=== PATIENT | male | born 1965 | race Caucasian/White ===

== ENCOUNTER 2023-03-31 16:26 | Emergency (ER) | payer OTHER ==
--- NOTE | 2023-03-31 16:28 | ERPHSYRPT ---
- History of Present Illness Time Seen by Provider: 03/31/23 16:28 Historian: patient Exam Limitations: no limitations Physician History: This is a 57-year-old white male patient who presents to the emergency department with 4-day history of intermittent right flank achiness and intermittent sharp shooting pains that has been occurring. He is never had this before. He has had no injury to his right flank area. He is concerned about a kidney stone but he is never had one before. He has no urinary symptoms. The most recent attack was 2 hours prior to arrival. He has no frequency, he has no hematuria, he has no dysuria. He denies nausea vomiting diarrhea. He denies chest pain. He denies shortness of breath. The pain can be elicited with palpation Timing/Duration: day(s) (4), intermittent, worse Quality: aching, sharpness, stabbing Abdominal Pain Onset Location: flank (Right lower back/flank) Pain Radiation: no radiation Severity of Pain-Max: moderate Severity of Pain-Current: moderate Modifying Factors: Improves With: movement, palpation Associated Symptoms: denies symptoms Previous symptoms: no prior history Allergies/Adverse Reactions: No Known Drug Allergies Allergy (Unverified 03/31/23 16:37) Travel Risk - International Travel Have you traveled outside of the country in past 3 weeks: No - Coronavirus Screening Are you exhibiting any of the following symptoms?: No Close contact with a COVID-19 positive Pt in past 14-21 Days: No - Review of Systems Constitutional: No Symptoms Eyes: No Symptoms Ears, Nose, & Throat: No Symptoms Respiratory: No Symptoms Cardiac: No Symptoms Abdominal/Gastrointestinal: No Symptoms Genitourinary Symptoms: Flank Pain (Right side) Musculoskeletal: Back Pain Skin: No Symptoms Neurological: No Symptoms Psychological: No Symptoms Endocrine: No Symptoms Hematologic/Lymphatic: No Symptoms Immunological/Allergic: No Symptoms All Other Systems: Reviewed and Negative - Past Medical History Pertinent Past Medical History: Yes - Past Surgical History Past Surgical History: Yes - Nursing Vital Signs Nursing Vital Signs: Initial Vital Signs Temperature 97.4 F 03/31/23 16:38 Pulse Rate 65 03/31/23 16:38 Respiratory Rate 18 03/31/23 16:38 Blood Pressure 164/69 03/31/23 16:38 O2 Sat by Pulse Oximetry 97 03/31/23 16:38 Pain Scale Pain Intensity 8 - Physical Exam General Appearance: mild distress, alert, anxiety Eye Exam: PERRL/EOMI, eyes nml inspection Ears, Nose, Throat Exam: normal ENT inspection, moist mucous membranes Neck Exam: normal inspection, non-tender, supple, full range of motion Respiratory Exam: normal breath sounds, lungs clear, airway intact, No chest tenderness, No respiratory distress Cardiovascular Exam: regular rate/rhythm, normal heart sounds, normal peripheral pulses Gastrointestinal/Abdomen Exam: soft, normal bowel sounds, No tenderness Rectal Exam: not done Back Exam: normal inspection, normal range of motion, CVA tenderness (Versus right lower back), No vertebral tenderness Extremity Exam: normal inspection, normal range of motion, pelvis stable Neurologic Exam: alert, oriented x 3, cooperative, 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, normal mood/affect, nml cerebellar function, nml station & gait, sensation nml Skin Exam: normal color, warm, dry Lymphatic Exam: No adenopathy SpO2 Interpretation: normal O2 Delivery: Room Air - Course Nursing assessment & vital signs reviewed: Yes Ordered Tests: Active Orders 24 hr Category Date Time Status IV Insertion STAT Care 03/31/23 16:47 Active ABDOMEN AND PELVIS W/0 CONTRAS [CT] Stat Exams 03/31/23 16:47 Completed AMYLASE Stat Lab 03/31/23 16:49 Completed CBC W DIFF Stat Lab 03/31/23 16:49 Completed CMP Stat Lab 03/31/23 16:49 Completed LIPASE Stat Lab 03/31/23 16:49 Completed UA W/RFX UR CULTURE Stat Lab 03/31/23 16:49 Completed Medication Summary Discontinued Medications Generic Name Dose Route Start Last Admin Trade Name Shannan PRN Reason Stop Dose Admin Hydromorphone HCl 1 mg 03/31/23 16:47 03/31/23 16:51 Hydromorphone 1 Mg/1ml Inj IV 03/31/23 16:48 1 mg STAT ONE Administration Hydromorphone HCl Confirm 03/31/23 16:50 Hydromorphone 1 Mg/1ml Inj Administered 03/31/23 16:51 Dose 1 mg .ROUTE .STK-MED ONE Ketorolac Tromethamine 30 mg 03/31/23 16:47 03/31/23 16:51 Ketorolac Tromethamine 30 Mg/Ml Inj IV 03/31/23 16:48 30 mg STAT ONE Administration Ketorolac Tromethamine Confirm 03/31/23 16:50 Ketorolac Tromethamine 30 Mg/Ml Inj Administered 03/31/23 16:51 Dose 30 mg .ROUTE .STK-MED ONE Ondansetron HCl 4 mg 03/31/23 16:47 03/31/23 16:51 Ondansetron Hcl 4 Mg/2 Ml Vial IV 03/31/23 16:48 4 mg STAT ONE Administration Ondansetron HCl Confirm 03/31/23 16:50 Ondansetron Hcl 4 Mg/2 Ml Vial Administered 03/31/23 16:51 Dose 4 mg .ROUTE .STK-MED ONE Lab/Rad Data: Laboratory Result Diagrams 03/31/23 16:49 03/31/23 16:49 Laboratory Results 03/31/23 03/31/23 03/31/23 Range/Units 16:49 16:49 16:49 WBC 7.9 (4.0-10.5) x10^3/uL RBC 5.30 (4.1-5.6) x10^6/uL Hgb 16.2 (12.5-18.0) g/dL Hct 48.1 (42-50) % MCV 90.8 (78-100) fL MCH 30.6 (26-32) pg MCHC 33.7 (32-36) g/dL RDW 12.4 (11.5-14.0) % Plt Count 189 (150-450) x10^3/uL MPV 10.8 (7.5-11.0) fL Gran % 66.2 H (36.0-66.0) % Immature Gran % (Auto) 0.3 (0.00-0.4) % Nucleat RBC Rel Count 0.0 (0.00-0.1) % Eos # (Auto) 0.12 (0-0.5) x10^3/uL Immature Gran # (Auto) 0.02 (0.00-0.03) x10^3u/L Absolute Lymphs (auto) 1.79 (1.0-4.6) x10^3/uL Absolute Monos (auto) 0.71 (0.0-1.3) x10^3/uL Absolute Nucleated RBC 0.00 (0.00-0.01) x10^3u/L Lymphocytes % 22.5 L (24.0-44.0) % Monocytes % 8.9 (0.0-12.0) % Eosinophils % 1.5 (0.00-5.0) % Basophils % 0.6 (0.0-0.4) % Absolute Granulocytes 5.25 (1.4-6.9) x10^3/uL Basophils # 0.05 (0-0.4) x10^3/uL Sodium 139 (137-145) mmol/L Potassium 4.9 (3.5-5.1) mmol/L Chloride 103 (98-107) mmol/L Carbon Dioxide 27 (22-30) mmol/L Anion Gap 13.3 (5-15) MEQ/L BUN 24 H (9-20) mg/dL Creatinine 1.15 (0.66-1.25) mg/dL Estimated GFR > 60.0 ML/MIN Glucose 82 (74-106) mg/dL Calcium 8.8 (8.4-10.2) mg/dL Total Bilirubin 0.50 (0.2-1.3) mg/dL AST 36 (17-59) U/L ALT 39 (0-50) U/L Alkaline Phosphatase 61 (38-126) U/L Serum Total Protein 7.3 (6.3-8.2) g/dL Albumin 4.4 (3.5-5.0) g/dL Amylase 72 (30-110) U/L Lipase 265 (23-300) U/L Urine Color Dark Yellow (Yellow) Urine Appearance Clear (Clear) Urine pH 5.5 (4.6-8.0) Ur Specific Hydes >=1.030 A (1.005-1.030) Urine Protein Negative (Negative) Urine Glucose (UA) Negative (Negative) mg/dL Urine Ketones Trace A (Negative) Urine Blood Negative (Negative) Urine Nitrite Negative (Negative) Urine Bilirubin Negative (Negative) Urine Urobilinogen 1.0 A (0.2) mg/dL Ur Leukocyte Esterase Trace A (Negative) U Hyaline Cast (Auto) NONE SEEN (0-2) /LPF Urine Microscopic RBC 0-2 (0-5) /HPF Urine Microscopic WBC 0-2 (0-5) /HPF Ur Epithelial Cells None Seen (None Seen) /HPF Urine Bacteria None Seen (None Seen) /HPF Urine Culture Reflexed NO (NO) - Progress Progress: improved, pain not gone completely, re-examined Progress Note: 03/31/23 18:32 CT scan of the abdomen pelvis without contrast shows mild hepatomegaly, and a large prostate, sigmoid diverticulosis without diverticulitis and the chest cuts show the right lower lobe posterior subsegmental patch of consolidation. No evidence for any lumbar spine acute fracture or subluxation. I reviewed the findings with the patient before discharge. This patient has a medical issue of moderate complexity. Level complexity in the work-up performed based on review of the patient's past medical history, review the patient's medication list, review the patient's drug allergy list, review of the patient's history present illness and physical findings on examination. The work-up in this patient includes a urinalysis, CT scan of the abdomen pelvis, CBC, CMP. I reviewed the results of the work-up. Patient ap pears to have a right lower lobe posterior pneumonia. We will provide him with 1 g of Rocephin intravenously followed by remotely sending a prescription for a Z-Nathaniel to his pharmacy and I will also send a prescription for prednisone. 03/31/23 18:36 Counseled pt/family regarding: lab results, diagnosis, need for follow-up, rad results Medical Desision Making - Diagnostic Testing Diagnostic test were ordered, analyzed, and reviewed by me: Yes Radiological Interpretation: Reviewed by me, Teleradiologist Report - Risk of complications The pt has a mod risk of morbidity or mortality based on: Need for prescription drug management - Departure Departure Disposition: Home Clinical Impression: Right lower lobe pneumonia Condition: Stable Critical Care Time: No Additional Instructions: Drink plenty of fluids. Take your medication as prescribed. Follow-up with your primary care provider for further evaluation and management. Prescriptions: Prednisone 10 mg [Deltasone 10 mg] 10 mg PO TID #12 tablet Orphenadrine Citrate 100 mg [Norflex 100 MG Tablet] 100 mg PO BID #10 tab Azithromycin 250 mg [Zithromax 250 MG TABLET] 250 mg PO ZPACK #6 tablet
[2023-03-31 16:45] VITALS: TEMP 97.4; O2SAT 97
[2023-03-31] MEDS ORDERED: TORAdol 30 mg Injection IV ONE (16:47)
[2023-03-31] MEDS ORDERED: Zofran 4 MG/2 ML VIAL IV ONE (16:47)
[2023-03-31] MEDS ORDERED: Hydromorphone 1 mg/ml Injection IV ONE (16:47)
[2023-03-31] MEDS ORDERED: Hydromorphone 1 mg/ml Injection ONE (16:50)
[2023-03-31] MEDS ORDERED: TORAdol 30 mg Injection ONE (16:50)
[2023-03-31] MEDS ORDERED: Zofran 4 MG/2 ML VIAL ONE (16:50)
[2023-03-31 17:13] LABS: Absolute Neutrophil Ct (ANC) 5.25 x10^3/uL (1.4-6.9); BASOPHIL % 0.6 % (0.0-0.4); Basophil (Absolute #) 0.05 x10^3/uL (0-0.4); Eosinophil % 1.5 % (0.00-5.0); Eosinophil (Absolute #) 0.12 x10^3/uL (0-0.5); Hematocrit 48.1 % (42-50); Hemoglobin 16.2 g/dL (12.5-18.0); IMMATURE GRAN # 0.02 x10^3u/L (0.00-0.03); IMMATURE GRAN % 0.3 % (0.00-0.4); Lymphocyte (Absolute #) 1.79 x10^3/uL (1.0-4.6); Lymphocytes % 22.5 % (24.0-44.0); Mean Cell Volume 90.8 fL (78-100); Mean Corpuscular Hemoglobin 30.6 pg (26-32); Mean Corpuscular Hgb Concent. 33.7 g/dL (32-36); Mean Platelet Volume 10.8 fL (7.5-11.0); Monocyte (Absolute #) 0.71 x10^3/uL (0.0-1.3); Monocytes % 8.9 % (0.0-12.0); Neutrophil % 66.2 % (36.0-66.0); Platelet Count 189 x10^3/uL (150-450); Red Cell Distribution Width 12.4 % (11.5-14.0); White Blood Count 7.9 x10^3/uL (4.0-10.5)
[2023-03-31 17:23] LABS: Bacteria None Seen /HPF (None Seen); Bilirubin Negative (Negative); Blood Negative (Negative); Epithelial Cells None Seen /HPF (None Seen); Glucose, Urine Negative (Negative); Hyaline Casts NONE SEEN /LPF (0-2); Ketones Trace (Negative); Leukocyte Esterase Trace (Negative); Nitrite Negative (Negative); Ph 5.5 (4.6-8.0); Protein,Urine Dip Negative (Negative); RBC 0-2 /HPF (0-5); Specific Gravity >=1.030 (1.005-1.030); WBC 0-2 /HPF (0-5)
[2023-03-31 17:27] LABS: Appearance Clear (Clear)
[2023-03-31 17:28] LABS: ADD URINE CULTURE? NO (NO)
[2023-03-31 17:33] LABS: ALBUMIN 4.4 g/dL (3.5-5.0); ALKALINE PHOSPHATASE 61 U/L (38-126); AMYLASE 72 U/L (30-110); ANION GAP 13.3 MEQ/L (5-15); BLOOD UREA NITROGEN 24 mg/dL (9-20); CHLORIDE 103 mmol/L (98-107); Calcium 8.8 mg/dL (8.4-10.2); Carbon Dioxide 27 mmol/L (22-30); Creatinine 1 1.15 mg/dL (0.66-1.25); EST GLOMERULAR FILTRATION RATE > 60.0 ML/MIN; Glucose 82 mg/dL (74-106); LIPASE 265 U/L (23-300); Potassium 4.9 mmol/L (3.5-5.1); SGOT/AST 36 U/L (17-59); SGPT/ALT 39 U/L (0-50); SODIUM 139 mmol/L (137-145); Total Protein 7.3 g/dL (6.3-8.2)
--- NOTE | 2023-03-31 18:27 | XRAY ---
CLINICAL HISTORY:Right flank pain COMPARISON:None. TECHNIQUE: CT scan of the abdomen was performed without IV contrast. Coronal and sagittal reconstructive images were also obtained. FINDINGS: Liver is enlarged in size measuring 18.5 cm span and with regular margins. No focal or diffuse parenchymal abnormality. No hepatic mass is identified. The portal vein, intrahepatic biliary radicals and the bile ducts are normal. Gall bladder appear normal with wall thickness. No radio opaque calculus or pericholecystic fluid identified. Common bile appears normal. Pancreas appears normal. No peripancreatic fat stranding, pancreatic pseudocyst or peripancreatic fluid collection. Spleen normal in size, no mass seen. Both adrenal glands are unremarkable. Both kidneys are normal in size, shape and orientation. No calculi, cyst mass or hydronephrosis seen on either side. Both ureters and urinary bladder appear normal. Enlarged prostate is seen measuring 5 x 6 x 4 cm of estimated volume 60 cc. Stomach and small bowel loops are unremarkable. Caecum and ileocecal junction appear normal. Large bowel loops appear normal without evidence of bowel obstruction. Sigmoid colon diverticulosis is seen. No evident diverticulitis. Rectum appear normal. No evidence of significant enlargement of the mesenteric or retroperitoneal lymph nodes. Spondylodenerative changes of the visualized spine with mild retrolithesis of L5 over S1. Aorto iliac atheromatous calcifications are seen. Chest cuts show right lower lobe posterior subsegmntal patch of consolidation. IMPRESSION: 1. Mild hepatomegaly. 2. Enlarged prostate 3. Sigmoid colon diverticulosis is seen. No evident diverticulitis. 4. Chest cuts show right lower lobe posterior subsegmntal patch of consolidation. Electronically Signed by: Alex Montenegro MD. (03/31/2023 17:26:37 HOST/HOSTESS [employer])
[2023-03-31] MEDS ORDERED: ROCEPHIN 1 Gm-D5w 50 ml Bag** 1 G/50 ML IVPB IV STA (18:31)
[2023-03-31] MEDS ORDERED: ROCEPHIN 1 Gm-D5w 50 ml Bag** 1 G/50 ML IVPB IV ONE (18:33)
[2023-03-31 19:02] VITALS: BP 119/75; PULSE 64; RESP 16
== END 2023-03-31 19:06 | disposition home or self-care (01) ==
LOC: ED 16:26
DX: J18.9 Pneumonia, unspecified organism (principal); R10.9 Unspecified abdominal pain; Z79.52 Long term (current) use of systemic steroids; Z79.899 Other long term (current) drug therapy
CPT/HCPCS: 36000; 36415; 74176; 80053; 81001; 82150; 83690; 85025; 96374; 96375; 99284; J0696; J1170; J1885; J2405